=== PATIENT | male | born 1960 | race Caucasian/White ===

== ENCOUNTER 2018-04-28 06:21 | Inpatient (IN) | payer OTHER, SELFPAY ==
[2018-04-16 13:52] VITALS: BMI 44.6
[2018-04-20 10:03] VITALS: BMI 44.6
[2018-04-28] VITALS (12 sets, daily range): BP systolic 108–143; BP diastolic 65–88; PULSE 61–113; RESP 14–18; TEMP 36.2–37.1; O2SAT 93–97; BMI 44.6
--- NOTE | 2018-04-28 | DI.RAD.S_ITS ---
PROCEDURE: XR CERVICAL SPINE 2V OR 3V INDICATIONS: C7-T1 ACDF TECHNIQUE: 3 view(s) of the cervical spine were acquired. COMPARISON: None. FINDINGS: 3 spot fluoroscopic intraoperative views demonstrating reported C7-T1 ACDF although exact anatomic landmarks are difficult to visualize and recommend correlation to real-time observation Dictated by: Ady Walsh M.D. on 04/28/2018 at 19:48 Approved by: Ady Walsh M.D. on 04/28/2018 at 19:49
[2018-04-28] MEDS: LACTATED RINGERS 1,000 ML 42 ML IV ×2 (07:08→10:01)
--- NOTE | 2018-04-28 07:29 | PM.PREOP ---
Pre-operative Note Interval Note Pre-op Check: Yes History & Physical Reviewed by Physician and Yes Exam Performed Changes: No
[2018-04-28] MEDS: CEFAZOLIN 2 GM/100 ML FROZ.PIGGY IV ×2 (07:51→20:26)
--- NOTE | 2018-04-28 07:55 | PM.OP.1 ---
Operative Date/Time/Diagnoses Date of procedure: 04/28/18 Time of procedure: 11:52 Pre-op diagnosis: cervical stenosis with radiculopathy Post-op diagnosis: same Procedure & Clinicians Procedure: C7T1 posterior fusion with instrumentation C7T1 right foraminotomy C7T1 ACDF with cage icbg microscope Same procedure as scheduled: Yes Indications: [age] year old male with intractable pain from cervical stenosis. They had failed conservative management and requested operative intervention. Risks and benefits of surgery were discussed and appropriate consents were obtained. Surgeon: Ladarius Mera Click Yes if Unassisted: No Anesthesia Type: General Operative Notes Findings: None Closure Type: primary Specimen(s): none sent Implants & Drains: DTrax posterior cage/screw Raoul LDR RANDALL-C Applied: catheter Estimated Blood Loss (mL): 20 Blood products transfused: none Procedure in detail: The patient was brought to the operating room and intubated on the stretcher. Time-out was performed. There were then rolled over to the well-padded prone position on chest rolls. Two views of fluoroscopy were taken to confirm our positioning. The neck was then prepped and draped in the standard sterile fashion. Preoperative antibiotics were given. Using fluoroscopy, we localized for planned incision. A 3 cm longitudinal incision was made to the well-marked right of the midline. Bovie came down to and split the fascia. We then used the MaXcess dilators and placed on our retractor and locked it to the table. A marker was placed and X-ray was used to confirm positioning. We used a Bovie to clear off the soft tissue over the lamina and facet. We made a separate 1 cm incision caudal to our retractor. We percutaneously placed the trocar through this and into our field underneath the retractor. Then, under direct visualization, we placed the trocar in the lateral aspect of the C7-T1 facet. We used the bur to decorticate the lateral masses around the facet. A trocar was placed over the Steinmann pin into the facet and then the pin was removed. We used a rasp to decorticate the facet joint itself. We then filled the DTrax cage with Osteocell bone graft and impacted it into the facet joint at C7-T1 under fluoroscopic guidance. We then took the lateral mass screw and placed it through the cage and then into the lateral mass for the posterior screw fixation. This completed the instrumented posterior fusion at C7-T1. We then brought in the microscope. A combination of bur, curettes and Kerrisons were used to perform a right C7-T1 foraminotomy. We confirmed everything was opened with a nerve hook. The wound was irrigated. More bone graft was placed over the lateral masses and facet at C7-T1. The retractor was removed. The fascia was closed in layers. Superficial and skin were closed. Sterile dressing was placed. The patient was then rolled over to the table in the supine position and positioned for the anterior surgery. The arms were tucked and a shoulder roll was placed. The neck and left iliac crest were prepped and draped in the standard sterile fashion. A 3 cm oblique incision was made on the left side of the neck along the skin fold. Bovie was used to split the platysma. We then bluntly dissected a standard anterolateral approach to the precervical fascia. We did have to deal with some of the scar from his previous surgery. We found his previous C6-7 plate and the C7-T1 disc below this. We then used the Bovie to the subperiosteally lift up the longus colli muscles. Self-retaining retractors were placed. Due to the depth as well as distal aspect of the cervical spine, we were unable to get Jellico pins into a position that would work for surgery. We brought in the microscope. A complete anterior discectomy was performed at C6-7 using a combination of scalpel, curettes, pituitaries, and Kerrison rongeurs. We used the curettes to decorticate the endplates. We came all the way down to the PLL. Again this was quite difficult due to the angle working at C7-T1 and our instruments could not push any further down past the sternum to take the PLL down from there. We trialed for cages. A small stab incision was made over the left iliac crest. We placed a Jamshidi aspiration needle into the iliac crest and aspirated one mL of bone marrow graft. We then took our Raoul LDR RANDALL-C cage and packed it with Osteocell, and mixed in the bone marrow aspirate. The cage was then placed into the disc space under fluoroscopic guidance. The 2 locking plates were placed through the cage for fixation. This completed the ACDF at C7-T1. The wound was copiously irrigated. There was no bleeding. The carotid was bleeding nicely. The platysma was closed. The superficial skin were closed. A Steri-Strip was placed over the iliac crest incision. Sterile dressings were placed. The patient was then extubated and brought to the recovery room without complication. Complications: none Condition: stable Disposition: PACU Plan for aftercare: Inpatient overnight. Up with physical therapy. Soft collar for comfort.
[2018-04-28] MEDS: THROMBIN (BOVINE) 5,000 UNIT VIAL 5000 UNIT TOP (08:46)
[2018-04-28] MEDS: BUPIVACAINE 0.25% W/ EPI VIAL 50 ML INJ (08:46)
[2018-04-28] MEDS: VANCOMYCIN 1,000 MG VIAL 1000 MG TOP (08:48)
[2018-04-28] MEDS: SODIUM CHLORIDE 0.9% 1,000 ML, GENTAMICIN 80 MG IRR (08:50)
--- NOTE | 2018-04-28 08:58 | SUR.OPER ---
Prone on padded OR bed, head in foam head support, gel chest rolls, gel pad under knees, pillow under lower legs, toes free of pressure, arms tucked at side and secured <90 degrees abduction. Safety belt at thigh and lower legs. tape providing traction from shoulders to foot of bed.
--- NOTE | 2018-04-28 09:02 | SUR.OPER ---
Supine on padded OR bed, head on pillow, arm padded and tucked at side, legs uncrossed, safety belt at thigh, tape over blanket over lower legs .
[2018-04-28] MEDS: CEFAZOLIN VIAL 2 GM in SODIUM CHLORIDE 0.9% 100 ML 200 ML IV (11:56)
[2018-04-28] MEDS: LACTATED RINGERS 1,000 ML 125 ML IV ×2 (13:10→21:39)
--- NOTE | 2018-04-28 13:14 | PC.NURSE ---
Pt to room 1250 alert, oreinted denies pain and nausea. Dressing to anterior neck and Left abdomen CDI. Posterior dressing with small shadow drainage on distal end. Soft collar in place. Sats on 3L 98%, pt oriented to room and call light.
--- NOTE | 2018-04-28 13:51 | CM.DANOTE ---
DCP: Case received, EMR reviewed and met with patient. Introduced self and role. DCP template completed with information currently available. Patient is a 58 year old male who admitted early this am to the care of the hospitalist team. PCP: MARLEE Lester. Payer: confirmed: [facility] Patient was admitted to hospital for C7-T1 foramectomy. Had C7T1 posterior fusion. Patient also has history of cervical stenosis. Patient was alert and oriented when this porter sample case introduces herself, wearing cervical collar post surgery. Lives at home with his . He stated that he has been through spinal surgery before. P: DCP to continue to assess. Plan is to go home, may get outpatient physical therapy as well. Jeri Blanca RN/Cd Mixer Helper
--- NOTE | 2018-04-28 14:04 | PT.IPTN ---
Current Diagnoses Spinal stenosis, cervical region (04/28/18) Arthrodesis status (04/28/18) Surgery Performed Operation Date: 04/28/18 07:45 Actual Procedures p C7-T1 Anterior & Posterior Instrumented Fusion. C7-T1 Posterior Right Foraminotomy - Ladarius Mera MD Physical Therapy Treatment Note Subjective Physical Therapy Visit Type Type Patient Refusal Notes Pt not ready to mobilize yet but was able to get background /baseline information. Physical Therapy Visit Comments Patient Comments Patient reports feeling really loopy still and isn't ready to try sitting up yet.
[2018-04-28] MEDS: CELECOXIB 200 MG CAPSULE 400 MG PO (14:39)
--- NOTE | 2018-04-28 15:54 | PT.IIE ---
Current Diagnoses Spinal stenosis, cervical region (04/28/18) Arthrodesis status (04/28/18) Surgery Performed Operation Date: 04/28/18 07:45 Actual Procedures p C7-T1 Anterior & Posterior Instrumented Fusion. C7-T1 Posterior Right Foraminotomy - Ladarius Mera MD Surgical History (Last Updated 04/20/18 @ 14:48 by Gala Ruiz, RN) History of lumbar surgery (Acute) History of penile implant (Acute) History of toe surgery (Acute) History of tonsillectomy (Acute) History of vasectomy (Acute) S/P carpal tunnel release (Acute) Status post cervical spinal arthrodesis (Acute) Medical History (Last Updated 04/20/18 @ 14:48 by Gala Ruiz, RN) Calcific tendinitis of shoulder (Acute) Cervical stenosis of spinal canal (Acute) Chest pain, unspecified (Acute) Chronic pain (Acute) GERD (gastroesophageal reflux disease) (Acute) Herpes zoster (Acute) History of atypical migraine (Acute) Hyperlipidemia (Acute) Hypertension (Acute) Impotence of organic origin (Acute) Increased frequency of urination (Acute) Lateral epicondylitis of right elbow (Acute) Left knee pain (Acute) Murmur (Acute) Noise-induced hearing loss (Acute) Obesity (Acute) Obstructive sleep apnea (adult) (pediatric) (Acute) Periodic limb movement (Acute) Presbyopia (Acute) Restless leg syndrome (Acute) Testicular hypofunction (Acute) Urinary urgency (Acute) Physical Therapy Inpatient Evaluation/Re-Eval M1 PT/OT-IP Prior Functional Status Start: 04/28/18 13:25 Freq: NEEDED Status: Active Protocol: Document 04/28/18 15:54 [facility] (Rec: 04/28/18 16:13 [facility] [id number]) Medical Review Prior Functional Status Medical History Reviewed Yes Diet/Fluid Consistency Regular Communication no known deficits Mobility and Gait ind without an AD Activities of Daily Living and IADL's ind without issues Social History Household Members spouse children Living Arrangements House Number of Floors (Floors) One Floor Number of Stairs To Enter/Railing? 2 SE no rails Home Environment Tub/Shower Home Equipment Raised Toilet Seat w/Armrests M2 PT-IP Current Condition Start: 04/28/18 13:25 Freq: NEEDED Status: Active Protocol: Document 04/28/18 15:54 [facility] (Rec: 04/28/18 16:13 [facility] [id number]) Physical Therapy Current Condition Current Condition Evaluation Date 04/28/18 Treatment Diagnosis C7-T1 posterior fusion with instrumentation, impaired activity tolerance Onset Date 04/28/18 Precautions Cervical Spine Precautions Soft Collar for Comfort No Heavy Lifting Log Roll M3 PT-IP Subjective Start: 04/28/18 13:25 Freq: NEEDED Status: Active Protocol: Document 04/28/18 15:54 [facility] (Rec: 04/28/18 16:13 [facility] [id number]) Subjective Physical Therapy Visit Type Type Initial Evaluation Visit Start Time 15:30 Visit Stop Time 15:54 Total Visit Minutes 24 Number of RISK SPECIALIST Visits 0 Physical Therapy Visit Comments Patient Comments Pt notes he still has some numbness in his R lateral hand . Short Term Goals go home. Therapy Pain Assessment Pain When Pain Assessed At Rest Pain Present Pain Present Pain Reported Location Posterior Neck Intensity 2 Scale Used Numeric (1 - 10) M4 PT-IP Mobility and Gait Start: 04/28/18 13:25 Freq: NEEDED Status: Active Protocol: Document 04/28/18 15:54 [facility] (Rec: 04/28/18 16:13 [facility] [id number]) PT-Bed Mobility Assessment Supine to Sit Supine to Sit Standby Assistance Head of Bed Elevated Scooting Scooting to Edge of Bed Independent PT-Transfer Assessment Sit to and From Stand Sit to and from Stand Standby Assistance Equipment Transfer Assistive Device None Gait Belt Transfers Transfer Destination Chair Transfer Technique Stand Step Pivot Transfer Ability Level of Assist Standby Assistance Gait Assessment Gait Gait Assistance Required: Standby Assistance Distance (Feet) (feet) 100 Assistive Devices Assistive Device None Gait Belt Gait Deviations General Gait Pattern Decreased Stride Length Decreased Feet Clearance Factors Limiting Gait Function Factors Limiting Gait Function Decreased Activity Tolerance PT-Balance Assessment Sitting Balance and Reactions Static Sitting Balance Ability Good Dynamic Sitting Balance Ability Good Standing Balance and Reactions Static Standing Balance Ability Fair Dynamic Standing Balance Ability Fair M5 PT-IP Objective Assessments Start: 04/28/18 13:25 Freq: NEEDED Status: Active Protocol: Document 04/28/18 15:54 [facility] (Rec: 04/28/18 16:13 [facility] [id number]) Orientation Orientation/Cognition Level of Alertness Alert Orientation Name Age Birthday Month Date Year Day of Week Place Situation Strength Comments Strength Comments LE 4/5 or greater bilateral R digits 4 and 5 finger abduction 3/5 Sensation Assessment Comments Sensation Comments impaired R digits 4 and 5 sensation- numbness M6 PT-IP Treatment Start: 04/28/18 13:25 Freq: NEEDED Status: Active Protocol: Document 04/28/18 15:54 [facility] (Rec: 04/28/18 16:13 [facility] [id number]) Physical Therapy Treatment Education Education Provided Precautions Safety M7 PT-IP Assessment and Plan Start: 04/28/18 13:25 Freq: NEEDED Status: Active Protocol: Document 04/28/18 15:54 [facility] (Rec: 04/28/18 16:13 [facility] [id number]) PT Summary Assessment and Plan Potential Rehabilitation Potential Good Status of Condition at Evaluation Stable Summary Impairments Strength Sensation Activity Tolerance Assessment Summary Same day post-operative cervical fusion C7-T1. Pt tolerated gait well, still having some numbness in lateral R hand digits 4 and 5. Expect pt to be able to d/c home with and family when medically stable. Pt given post-op handout. Recommend trial stairs prior to d/c, no rails. Goals Bed Mobility Goal Independent Transfer Goal Independent Gait Goal Independent Gait Distance 150 Other Goals up/down 2 steps with no rails and SBA Days to Meet Goals 1 Frequency of Treatment Frequency Of Treatment Twice a Day Treatment Plan Physical Therapy Treatment Plan Bed Mobility Training Gait Training Other Recommendations and Next Treatment stairs- 2 SE no rails, gait Focus Recommendations To Nursing Amount of Assist Needed Standby Assistance Discharge Recommendations PT Discharge Recommendations Home with Assistance
[2018-04-28] MEDS: SENNOSIDES 8.6 MG TABLET 17.2 MG PO (20:25)
[2018-04-28] MEDS: HYDROCODONE/ACET 10/325 TABLET 1 TAB PO (20:26)
[2018-04-28] MEDS: PANTOPRAZOLE 20 MG TABLET PO (20:26)
[2018-04-28] MEDS: TAMSULOSIN 0.4 MG CAPSULE 0.8 MG PO (20:26)
[2018-04-28] MEDS: CELECOXIB 200 MG CAPSULE PO (20:26)
[2018-04-28] MEDS: GABAPENTIN 300 MG CAPSULE PO (20:26)
[2018-04-28] MEDS: DOCUSATE 100 MG CAPSULE PO (20:26)
--- NOTE | 2018-04-28 21:57 | PC.NURSE ---
pts pain has been well controlled. soft neck collar in place. cms(+), gait steady.
[2018-04-29 00:30] VITALS: BP 124/61; PULSE 82; RESP 17; TEMP 36.9; O2SAT 97
[2018-04-29] MEDS: CEFAZOLIN 2 GM/100 ML FROZ.PIGGY IV (04:04)
[2018-04-29 04:17] VITALS: O2SAT 97
[2018-04-29 04:57] VITALS: BP 114/63; PULSE 68; RESP 16; TEMP 36.7; O2SAT 94
[2018-04-29 05:17] LABS: Hematocrit 38.9 % (41-53); Hemoglobin 13.1 g/dL (13.5-17.5)
[2018-04-29 07:35] VITALS: BP 128/73; PULSE 80; RESP 16; TEMP 36.6; O2SAT 93
--- NOTE | 2018-04-29 08:04 | P.PN_ITS ---
Subjective Date Patient Seen: 04/29/18 Time Patient Seen: 08:03 Interval history: He is doing very well. The tingling in the right hand has resolved. He has been up with physical therapy yesterday. Swallowing okay. Exam Vital Signs (past 8 hours): - 04/29/18 00:30 04/29/18 04:17 04/29/18 04:57 Temperature 98.4 F 98.1 F Pulse Rate 82 68 Respiratory Rate 17 16 Blood Pressure 124/61 H 114/63 Pulse Oximetry 97 97 94 Oxygen Delivery Method CPAP Oxygen Flow Rate 0 Const Orientation: alert and oriented x3 Back/Spine/Pelvis Other: Anterior dressing clean dry intact, mild drainage on posterior dressing. 5/5 motor both upper extremities except for 4/5 right herbicide sprayer and intrinsics Objective Labs Result Diagrams: 04/29/18 04:44 Labs: Laboratory Results - last 24 hr 04/29/18 04:44 Hgb 13.1 L Hct 38.9 L Assessment & Plan Post-op Postoperative Procedures Operation Date: 04/28/18 07:45 Actual Procedures Side Surgeon p C7-T1 Anterior & Posterior Instrumented Fusion. C7-T1 Posterior Right Foraminotomy Ladarius Mera MD He is doing very well after his anterior and posterior cervical fusion. Plan for discharge home today. Quality VTE Deep Vein Thrombosis/Pulmonary Embolism Present on Admission: No
[2018-04-29] MEDS: DOCUSATE 100 MG CAPSULE PO (08:27)
[2018-04-29] MEDS: CELECOXIB 200 MG CAPSULE PO (08:27)
--- NOTE | 2018-04-29 09:30 | OT.IP.TRT ---
Current Diagnoses Spinal stenosis, cervical region (04/28/18) Arthrodesis status (04/28/18) Surgery Performed Operation Date: 04/28/18 07:45 Actual Procedures p C7-T1 Anterior & Posterior Instrumented Fusion. C7-T1 Posterior Right Foraminotomy - Ladarius Mera MD Occupational Therapy Treatment Note M3 OT- IP Subjective and Pain Start: 04/29/18 15:30 Freq: Status: Active Protocol: Document 04/29/18 09:30 [facility] (Rec: 04/29/18 15:33 [facility] [id number]) OT- Subjective Occupational Therapy Visit Type Type Administrative Note Visit Start Time 09:22 Visit Stop Time 09:30 Total Visit Minutes 8 Notes OT referral received on this 58 yr old pt s/p C7-T1 anterior/posterior cervical fusion. This is pt's third C- spine surgery and he is very familiar with adapted ADL techniques and cervical precautions. He has all necessary adaptive equipment and bathroom safety equipment. He will have 24 hr assist from at home. No OT goals identified for this admission. No charge.
--- NOTE | 2018-04-29 10:15 | PT.IPTN ---
Current Diagnoses Spinal stenosis, cervical region (04/28/18) Arthrodesis status (04/28/18) Surgery Performed Operation Date: 04/28/18 07:45 Actual Procedures p C7-T1 Anterior & Posterior Instrumented Fusion. C7-T1 Posterior Right Foraminotomy - Ladarius Mera MD Physical Therapy Treatment Note M2 PT-IP Current Condition Start: 04/28/18 13:25 Freq: NEEDED Status: Active Protocol: Document 04/28/18 15:54 [facility] (Rec: 04/28/18 16:13 [facility] [id number]) Physical Therapy Current Condition Current Condition Evaluation Date 04/28/18 Treatment Diagnosis C7-T1 posterior fusion with instrumentation, impaired activity tolerance Onset Date 04/28/18 Precautions Cervical Spine Precautions Soft Collar for Comfort No Heavy Lifting Log Roll M3 PT-IP Subjective Start: 04/28/18 13:25 Freq: NEEDED Status: Active Protocol: Document 04/29/18 10:15 [facility] (Rec: 04/29/18 11:00 [facility]GD [id number]) Subjective Physical Therapy Visit Type Type Treatment Note Visit Start Time 09:50 Visit Stop Time 10:15 Total Visit Minutes 25 Number of RECORDS MANAGEMENT COORDINATOR Visits 1 Physical Therapy Visit Comments Patient Comments Pt states he hopes to go home today. Therapy Pain Assessment Pain When Pain Assessed At Rest Pain Present Pain Present Pain Reported M4 PT-IP Mobility and Gait Start: 04/28/18 13:25 Freq: NEEDED Status: Active Protocol: Document 04/29/18 10:15 [facility] (Rec: 04/29/18 11:00 GGD [id number]) PT-Transfer Assessment Sit to and From Stand Sit to and from Stand Standby Assistance Equipment Transfer Assistive Device None Gait Belt Transfers Transfer Destination Chair Transfer Technique ambulate Transfer Ability Level of Assist Independent Gait Assessment Gait Gait Assistance Required: Standby Assistance Distance (Feet) (feet) 325 Assistive Devices Assistive Device None Gait Belt Gait Deviations General Gait Pattern Decreased Stride Length Decreased Feet Clearance Stair Climbing Assessment Evaluation Level of Assist On Stairs Standby Assistance Devices Stair Climbing Assistive Devices None Technique/Endurance Stair Climbing Direction Ascend and Descend Stair Climbing Technique Step Over Step Number of Steps Climbed 3 Query Text: Stair Climbing Set # Repetitions (reps) 1 M5 PT-IP Objective Assessments Start: 04/28/18 13:25 Freq: NEEDED Status: Active Protocol: Document 04/28/18 15:54 [facility] (Rec: 04/28/18 16:13 [facility] [id number]) Orientation Orientation/Cognition Level of Alertness Alert Orientation Name Age Birthday Month Date Year Day of Week Place Situation Strength Comments Strength Comments LE 4/5 or greater bilateral R digits 4 and 5 finger abduction 3/5 Sensation Assessment Comments Sensation Comments impaired R digits 4 and 5 sensation- numbness M6 PT-IP Treatment Start: 04/28/18 13:25 Freq: NEEDED Status: Active Protocol: Document 04/29/18 10:15 GGD (Rec: 04/29/18 11:00 GGD [id number]) Physical Therapy Treatment Education Education Provided Precautions Safety M7 PT-IP Assessment and Plan Start: 04/28/18 13:25 Freq: NEEDED Status: Active Protocol: Document 04/29/18 10:15 GGD (Rec: 04/29/18 11:00 GGD [id number]) PT Summary Assessment and Plan Summary Assessment Summary Pt safe and stable with mobility. No LOB or unsteadiness with gait or stair mobility. Frequency of Treatment Frequency Of Treatment Twice a Day Treatment Plan Physical Therapy Treatment Plan Bed Mobility Training Gait Training Other Recommendations and Next Treatment stairs- 2 SE no rails, gait Focus Recommendations To Nursing Amount of Assist Needed Standby Assistance Discharge Recommendations PT Discharge Recommendations Home with Assistance
--- NOTE | 2018-04-29 12:12 | CM.DPC ---
DCP Cont: Patient is to be discharged home today, has voiced no concerns about discharge. Spouse will provide transportation. P: Discharge home today. Jeri Blanca RN/Rasper Machine Operator
[2018-04-29 12:26] VITALS: BP 131/64; PULSE 69; RESP 16; TEMP 36.6; O2SAT 97
--- NOTE | 2018-04-29 13:34 | PC.NURSE ---
discharge instructions and home care handouts reviewed with patient, patient states understanding and has no further questions or concerns. Posterior dressing changed per MD order. Patient seen by OT, PT, and ST and cleared for discharge. IV dc'd intact. Prescriptions (2) given to patient to fill at pharmacy of choice. Soft collar in place. Patient declines pain medication prior to discharge. Patient escorted out via wheelchair by ACCOUNT SERVICES COORDINATOR with all belongings to home with his son. Patient states he has follow up appointment scheduled.
== END 2018-04-29 13:40 | disposition home or self-care (01) | DRG 454 ==
PROVIDERS: Admitting Provider Orthopaedic Surgery; PCP Nurse Practitioner; Visit Provider Orthopaedic Surgery
PROC: 0RG40A0 Fusion of Cervicothoracic Vertebral Joint with Interbody Fusion Device, Anterior Approach, Anterior Column, Open Approach (ICD-10-PCS; principal; 2018-04-28 07:45)
DX: M48.02 Spinal stenosis, cervical region (principal); Z68.41 Body mass index [BMI] 40.0-44.9, adult; E66.01 Morbid (severe) obesity due to excess calories; G47.33 Obstructive sleep apnea (adult) (pediatric); I10 Essential (primary) hypertension; K21.9 Gastro-esophageal reflux disease without esophagitis; Z98.1 Arthrodesis status; M54.13 Radiculopathy, cervicothoracic region
CPT/HCPCS: 36415; 72040; 76001; 85014; 85018; 97116; 97161; 97530; C1776; J0690; J2250; J3010